=== PATIENT | male | born 1960 | race Two or more races ===

== ENCOUNTER 2018-01-29 09:34 | Emergency (ER) | payer MEDICAID ==
[~2018-01-29] VITALS: Ht 177.8 cm; Wt 81.6 kg
[2018-01-29 10:00] VITALS: BP 115/76
[2018-01-29] MEDS ORDERED: cefTRIAXone SOD 1,000 MG VL IM ONE ×2 (10:15→10:45)
[2018-01-29] MEDS ORDERED: methylPREDNISolone SOD SUCC 125 MG/2 ML VL IM ONE ×2 (10:15→10:45)
== END 2018-01-29 10:57 | disposition home or self-care (01) ==
LOC: ER 09:34
DX: L03.113 Cellulitis of right upper limb (principal)
CPT/HCPCS: 73080; 96372; 99284; J0696; J2930